=== PATIENT | male | born 1965 | race Caucasian/White ===

== ENCOUNTER → 2017-05-31 09:42 | Day surgery (SDC) | payer BC ==
--- NOTE | 2017-05-30 17:05 | HP ---
HISTORY AND PHYSICAL: DATE OF ADMISSION: 05/31/2017. CHIEF COMPLAINT: Painful umbilical/ventral hernia. 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 At the present time, he is retired but lately he has been complaining of pain in the periumbilical area. He states that the umbilical hernia that he has protrudes more, it becomes more painful and it is quite bothersome to the point that he has been using an abdominal binder and this seems to relieve the problem. He is able to completely reduce the hernia and denies any vomiting, severe pain, or constipation. PAST MEDICAL HISTORY: The patient's past medical history is remarkable for hay fever and the presence of an asymptomatic umbilical hernia. MEDICATIONS: He takes no medications and has not had any prior surgeries in the past. He states that he is an otherwise healthy individual. ALLERGIES: He has no drug allergies. PHYSICAL EXAMINATION GENERAL: The patient is alert and oriented, in no acute distress. NECK: Within normal limits. No nodes or masses are palpable. LUNGS: Clear to auscultation bilaterally. HEART: Regular without murmurs. ABDOMEN: Soft and depressible. Globular with central fat deposition. There are no masses palpable. The tenderness is surrounding of the area of the umbilicus. The abdomen was examined both in a standing up position and in a supine position. The hernia is completely reducible, tender when pressed directly over the ring, but there is no rebound tenderness and bowel sounds are normal. There are no inguinal hernias. EXTREMITIES: Examination is otherwise unremarkable. DIAGNOSTIC IMPRESSION: Umbilical hernia with symptoms. PLAN: My recommendation is to proceed with umbilical hernia repair because of the worsening of his symptoms. It is to be performed in the ambulatory center with the use of a mesh. Risks of the surgery were discussed including but not exclusive of others such as recurrence, infection, mesh foreign body reaction etc. The patient understands, agrees, and wishes to proceed. [id number] #: [id number] MTDD
[~2017-05-31 09:42] MED LIST: Acetaminophen TAB* 325 MG PO PRN; Buffered Lidocaine 0.9% SYRIN* 5 ML/SYR SYRINGE INTRADERM ONE; Bupivacaine 0.5% W/EPI SDV* 30 ML VIAL ONE; Dexamethasone IV* 4 MG/ML 1 ML (4 MG) ONE; DiMENhydriNATE IV* 50 MG/ML VIAL IV PUSH PRN; Enoxaparin(*) 40 MG/0.4 ML SYR ONE; HYDROcodone/ACETAMIN 5-325 MG* 1 TAB PO PRN; Ketorolac INJ* 30 MG/ML 1 ML VIAL ONE; Lidocaine 1% INJ* 10 MG/ML 30 ML SDV ONE; Lidocaine 2% PF * 5 ML VIAL ONE; Midazolam* 1 MG/ML 2 ML VIAL (2 MG) ONE; Ondansetron INJ* 2 MG/ML VIAL IV PRN; Ondansetron INJ* 2 MG/ML VIAL ONE; PROCHLORPERAZINE INJ 5 MG/ML 2 ML VIAL IV PRN; Phenylephrine IV* 40 MCG/ML 10 ML SYRINGE ONE; Propofol* 10 MG/ML 20 ML BTL IV PUSH ONE; ceFAZolin 2 GM PREMIX (*) 2 GM/50 ML BAG IVPB ONE; fentaNYL* 50 MCG/ML 2 ML VIAL (100 MCG VIAL) ONE
[2017-05-31 14:00] VITALS: BP 146/89
--- NOTE | 2017-06-01 01:01 | OP ---
DATE OF OPERATION: 05/31/17 - [facility] DATE OF : 63 SURGEON: Chas Nelson MD PROCESS SERVER: Aria Emery NP ANESTHESIOLOGIST: Dr. Gipson ANESTHESIA: General PRE-OP DIAGNOSIS: Umbilical hernia. POST-OP DIAGNOSIS: Umbilical hernia. OPERATIVE PROCEDURE: Umbilical hernia repair with mesh (Ventralex Bard 8-cm [place]). ESTIMATED BLOOD LOSS: None. DESCRIPTION OF PROCEDURE: The patient was taken to the procedure room. He underwent appropriate marking of the umbilical hernia, which was completely reducible. He was then placed in the supine position. He was prepped and draped in the usual sterile fashion. He received preoperative antibiotics and after proper identification of the site, under general anesthesia, once the patient was prepped and draped in the usual sterile fashion, Marcaine 0.5% with epinephrine was used to infiltrate in the surrounding area of the umbilicus. After this was done, a smiling face incision was done under the umbilicus. This was carried down through the skin and subcutaneous tissue. The fascia was then exposed and at this level, 0.5 cm from the fascia, the sac was then completely encircled and this was then opened by sharp dissection. Care was taken to avoid entering into the sac. The sac was completely detached from the fascia and the properitoneal fat was present leading the sac. There was no content in the sac other than just the properitoneal fat. After this was done, a dissection just outside the peritoneum under the fascia was done in a circular manner by blunt dissection with enough space to receive the circular mesh. After this was completed, we then proceed to introduce a Ventralex 8-cm [place] into the properitoneal space and the wings of the mesh were opened, assisted by the mesh strings attached to the circular mesh itself. Once it was completely deployed and completely opened, the strings were then left under traction outer part of the mesh was tacked with interrupted 2- 0 Prolene sutures and after this, the strings were then transected and removed. Once this was completed, the layer of fatty tissue was then covered over the small area of the mesh exposed and then after this, the umbilicus was then attached to the fascia with 4-0 Vicryl sutures and the skin was closed with interrupted vertical mattress using 4-0 Prolene sutures. The patient tolerated the procedure well. He was recovered, given instructions, and discharged home in good condition. [id number]/[id number] #: [id number] SHANTEL
== END | disposition home or self-care (01) ==
LOC: OREAST 09:42
PROVIDERS: ATTEND Surgery
DX: K42.9 Umbilical hernia without obstruction or gangrene (principal); Z68.36 Body mass index [BMI] 36.0-36.9, adult
CPT/HCPCS: C1781; J0690; J1100; J1650; J1885; J2250; J2405; J2704; J3010

== ENCOUNTER 2018-08-14 10:18 | Emergency (ER) | payer SELFPAY ==
[2018-08-14 11:34] VITALS: BP 164/97
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
== END 2018-08-14 12:35 | disposition home or self-care (01) ==
LOC: UCCORT 10:18
DX: M54.5 Low back pain (principal); R03.0 Elevated blood-pressure reading, without diagnosis of hypertension; I10 Essential (primary) hypertension; V43.52XA Car driver injured in collision with other type car in traffic accident, initial encounter; Y92.9 Unspecified place or not applicable
CPT/HCPCS: 72110; 99212; G0463